=== PATIENT | female | born 1945 | race Caucasian/White ===

== ENCOUNTER → 2023-11-21 10:10 | Outpatient (REF) | payer MEDICARE, OTHER, SELFPAY ==
[2023-11-21 13:05] LABS: % Basophils 0.7 % (0-2); % Eosinophils 2.4 % (0-6); % Immature Granulocytes 0.9 % (0-0.5); % Lymphocytes 22.9 % (20.5-51.1); % Monocytes 11.2 % (1.7-9.3); % Neutrophils 61.9 % (42.2-75.2); Absolute Eosinophils 0.1 10^3/uL (0-0.7); Absolute Immature Granulocytes 0.1 10^3/uL (0-0.05); Absolute Lymphocytes 1.3 10^3/uL (1.2-3.4); Absolute Monocytes 0.7 10^3/uL (0.1-0.6); Absolute Neutrophils 3.6 10^3/uL (1.4-6.5); Hematocrit 38.8 % (37.0-47.0); Hemoglobin 12.6 g/dL (12.0-16.0); Mean Corp Hgb Conc. 32.5 g/dL (33.0-37.0); Mean Corpuscular Hgb 30.3 pg (27.0-31.0); Mean Corpuscular Volume 93.3 fL (81.0-99.0); Mean Platelet Volume 12.2 fL (7.4-10.4); Nucleated Red Blood Cells % 0 %; Platelet Count 182 10^3/uL (130-400); Red Blood Cell Count 4.16 10^6/uL (4.20-5.40); Red Cell Dist. Width 13.6 % (11.5-14.5); White Blood Cell Count 5.8 10^3/uL (4.8-10.8)
[2023-11-21 14:06] LABS: ALT (SGPT) 23 U/L (0-35); AST (SGOT) 36 U/L (14-36); Albumin 4.2 g/dl (3.5-5.0); Alkaline Phosphatase 86 U/L (38-126); Blood Urea Nitrogen 12 mg/dl (7-17); Calcium 9.6 mg/dl (8.4-10.2); Carbon Dioxide 25 mmol/L (22-30); Chloride 103 mmol/L (98-107); Glucose 84 mg/dl (70-99); HDL Cholesterol 57 mg/dl; LDL Cholesterol, Calculated 49 mg/dl; Potassium 4.5 mmol/L (3.5-5.1); Sodium 134 mmol/L (135-145); Total Bilirubin 0.9 mg/dl (0.2-1.3); Total Cholesterol 134 mg/dl (50-199); Total Protein 6.8 g/dl (6.3-8.2); Triglyceride 141 mg/dl (10-149); Very Low Density Lipoprotein 28 mg/dl (0-30); eGFR > 60.00
== END ==
LOC: HWLAB 10:10
PROVIDERS: ATTENDING PHYSICIAN Family Medicine
DX: E78.2 Mixed hyperlipidemia (principal); R79.89 Other specified abnormal findings of blood chemistry; Z79.899 Other long term (current) drug therapy
CPT/HCPCS: 36415; 80053; 80061; 85025

== ENCOUNTER → 2024-01-23 13:29 | Outpatient (REF) | payer MEDICARE, OTHER, SELFPAY ==
[2024-01-23 16:03] LABS: Hematocrit 37.1 % (37.0-47.0); Hemoglobin 12.8 g/dL (12.0-16.0); Mean Corp Hgb Conc. 34.5 g/dL (33.0-37.0); Mean Corpuscular Hgb 31.1 pg (27.0-31.0); Platelet Count 232 10^3/uL (130-400); Red Blood Cell Count 4.12 10^6/uL (4.20-5.40); Red Cell Dist. Width 13.4 % (11.5-14.5); White Blood Cell Count 6.9 10^3/uL (4.8-10.8)
[2024-01-23 16:15] LABS: ALT (SGPT) 21 U/L (0-35); AST (SGOT) 32 U/L (14-36); Albumin 4.3 g/dl (3.5-5.0); Alkaline Phosphatase 95 U/L (38-126); Blood Urea Nitrogen 16 mg/dl (7-17); Calcium 9.6 mg/dl (8.4-10.2); Carbon Dioxide 25 mmol/L (22-30); Chloride 102 mmol/L (98-107); Glucose 95 mg/dl (70-99); Iron 91 ug/dl (37-170); Potassium 5.3 mmol/L (3.5-5.1); Sodium 135 mmol/L (135-145); Total Bilirubin 0.7 mg/dl (0.2-1.3); Total Protein 6.7 g/dl (6.3-8.2); eGFR > 60.00
[2024-01-23 16:50] LABS: Ferritin 11.4 ng/ml (11.1-264.0)
[2024-01-23 18:46] LABS: Hepatitis B Surface Antigen Negative (Negative)
[2024-01-23 19:04] LABS: Hepatitis B Surface Antibody Negative
== END ==
LOC: HWLAB 13:29
PROVIDERS: ATTENDING PHYSICIAN Internal Medicine Gastroenterology; FAMILY PHYSICIAN Family Medicine
DX: K50.00 Crohn's disease of small intestine without complications (principal)
CPT/HCPCS: 36415; 80053; 82728; 83540; 85027; 86706; 87340

== ENCOUNTER → 2024-02-06 09:07 | Outpatient (REF) | payer MEDICARE, OTHER, SELFPAY ==
[2024-02-06 13:35] LABS: C-Reactive Protein < 5.00 mg/L (0.0-10.00)
[2024-02-06 13:42] LABS: Total Iron Binding Capacity 420 ug/dl (265-497)
[2024-02-06 13:43] LABS: Erythrocyte Sed Rate 17 mm/hour (0-20)
[2024-02-06 14:24] LABS: Vitamin B12 562 pg/ml (239-931)
[2024-02-06 19:10] LABS: Hepatitis B Core Ab, Total Negative (Negative)
[2024-02-08 16:15] LABS: Quantiferon Mitogen minus NIL 9.99 IU/mL; Quantiferon NIL 0.01 IU/mL; Quantiferon TB Gold Plus Negative (Negative)
== END ==
LOC: HWLAB 09:07
PROVIDERS: ATTENDING PHYSICIAN Internal Medicine Gastroenterology; FAMILY PHYSICIAN Family Medicine; REFERRING PHYSICIAN Internal Medicine Gastroenterology
DX: K50.00 Crohn's disease of small intestine without complications (principal)
CPT/HCPCS: 36415; 82607; 82652; 83550; 83993; 85652; 86140; 86480; 86704

== ENCOUNTER → 2024-05-01 11:06 | Outpatient (REF) | payer MEDICARE, OTHER, SELFPAY ==
[2024-05-01 16:12] LABS: % Basophils 0.8 % (0-2); % Eosinophils 1.4 % (0-6); % Immature Granulocytes 0.9 % (0-0.5); % Lymphocytes 19.7 % (20.5-51.1); % Monocytes 10.3 % (1.7-9.3); % Neutrophils 66.9 % (42.2-75.2); Absolute Basophils 0.1 10^3/uL (0-0.2); Absolute Eosinophils 0.1 10^3/uL (0-0.7); Absolute Immature Granulocytes 0.1 10^3/uL (0-0.05); Absolute Lymphocytes 1.3 10^3/uL (1.2-3.4); Absolute Monocytes 0.7 10^3/uL (0.1-0.6); Absolute Neutrophils 4.4 10^3/uL (1.4-6.5); Hematocrit 39.1 % (37.0-47.0); Hemoglobin 13.1 g/dL (12.0-16.0); Mean Corp Hgb Conc. 33.5 g/dL (33.0-37.0); Mean Corpuscular Hgb 31.3 pg (27.0-31.0); Mean Corpuscular Volume 93.3 fL (81.0-99.0); Mean Platelet Volume 12.3 fL (7.4-10.4); Nucleated Red Blood Cells % 0 %; Platelet Count 199 10^3/uL (130-400); Red Blood Cell Count 4.19 10^6/uL (4.20-5.40); Red Cell Dist. Width 13.4 % (11.5-14.5); White Blood Cell Count 6.5 10^3/uL (4.8-10.8)
[2024-05-01 16:23] LABS: ALT (SGPT) 24 U/L (0-35); AST (SGOT) 34 U/L (14-36); Albumin 4.1 g/dl (3.5-5.0); Alkaline Phosphatase 82 U/L (38-126); Blood Urea Nitrogen 16 mg/dl (7-17); Calcium 9.7 mg/dl (8.4-10.2); Carbon Dioxide 25 mmol/L (22-30); Chloride 104 mmol/L (98-107); Glucose 83 mg/dl (70-99); HDL Cholesterol 56 mg/dl; LDL Cholesterol, Calculated 63 mg/dl; Potassium 4.7 mmol/L (3.5-5.1); Sodium 138 mmol/L (135-145); Total Cholesterol 145 mg/dl (50-199); Total Protein 6.6 g/dl (6.3-8.2); Triglyceride 131 mg/dl (10-149); Very Low Density Lipoprotein 26 mg/dl (0-30); eGFR > 60.00
== END ==
LOC: HWLAB 11:06
PROVIDERS: ATTENDING PHYSICIAN Internal Medicine Gastroenterology; FAMILY PHYSICIAN Family Medicine
DX: K50.00 Crohn's disease of small intestine without complications (principal); E78.2 Mixed hyperlipidemia; K21.00 Gastro-esophageal reflux disease with esophagitis, without bleeding; R79.89 Other specified abnormal findings of blood chemistry
CPT/HCPCS: 36415; 80053; 80061; 85025

== ENCOUNTER → 2024-05-12 07:37 | Outpatient (REF) | payer MEDICARE, OTHER, SELFPAY | LOC: HWLAB 07:37 | PROVIDERS: ATTENDING PHYSICIAN Internal Medicine Gastroenterology; FAMILY PHYSICIAN Family Medicine | DX: K50.00 Crohn's disease of small intestine without complications (principal) | CPT/HCPCS: 36415 ==

== ENCOUNTER → 2024-06-03 12:49 | Outpatient (REF) | payer MEDICARE, OTHER, SELFPAY | LOC: HWRAD 12:49 | PROVIDERS: ATTENDING PHYSICIAN Specialist; FAMILY PHYSICIAN Family Medicine | DX: N31.2 Flaccid neuropathic bladder, not elsewhere classified (principal) | CPT/HCPCS: 76775 ==

== ENCOUNTER 2024-06-16 08:20 | Outpatient (RCR) | payer MEDICARE, OTHER, SELFPAY | END 2024-06-16 23:59 | disposition home or self-care (01) | LOC: RPT 08:20 | PROVIDERS: ATTENDING PHYSICIAN Family Medicine | DX: M67.921 Unspecified disorder of synovium and tendon, right upper arm (principal); Z73.6 Limitation of activities due to disability | CPT/HCPCS: 97110; 97162 ==

== ENCOUNTER 2024-07-08 13:16 | Outpatient (RCR) | payer MEDICARE, OTHER, SELFPAY | END 2024-07-08 23:59 | disposition home or self-care (01) | LOC: RPT 13:16 | PROVIDERS: ATTENDING PHYSICIAN Family Medicine | DX: M67.921 Unspecified disorder of synovium and tendon, right upper arm (principal); Z73.6 Limitation of activities due to disability | CPT/HCPCS: 97010; 97110 ==

== ENCOUNTER → 2024-11-12 13:53 | Outpatient (REF) | payer MEDICARE, OTHER, SELFPAY | LOC: HWRCS 13:53 | PROVIDERS: ATTENDING PHYSICIAN Internal Medicine; FAMILY PHYSICIAN Family Medicine | DX: I34.0 Nonrheumatic mitral (valve) insufficiency (principal); I10 Essential (primary) hypertension; I25.10 Atherosclerotic heart disease of native coronary artery without angina pectoris; I36.1 Nonrheumatic tricuspid (valve) insufficiency | CPT/HCPCS: 93306 ==

== ENCOUNTER → 2024-11-20 10:56 | Outpatient (REF) | payer MEDICARE, OTHER, SELFPAY ==
[2024-11-20 16:27] LABS: % Basophils 0.9 % (0-2); % Eosinophils 1.8 % (0-6); % Immature Granulocytes 0.5 % (0-0.5); % Lymphocytes 22.8 % (20.5-51.1); % Monocytes 12.2 % (1.7-9.3); % Neutrophils 61.8 % (42.2-75.2); Absolute Basophils 0.1 10^3/uL (0-0.2); Absolute Eosinophils 0.1 10^3/uL (0-0.7); Absolute Lymphocytes 1.5 10^3/uL (1.2-3.4); Absolute Monocytes 0.8 10^3/uL (0.1-0.6); Hematocrit 36.2 % (37.0-47.0); Hemoglobin 11.9 g/dL (12.0-16.0); Mean Corp Hgb Conc. 32.9 g/dL (33.0-37.0); Mean Corpuscular Hgb 30.2 pg (27.0-31.0); Mean Corpuscular Volume 91.9 fL (81.0-99.0); Nucleated Red Blood Cells % 0 %; Platelet Count 177 10^3/uL (130-400); Red Blood Cell Count 3.94 10^6/uL (4.20-5.40); Red Cell Dist. Width 13.3 % (11.5-14.5); White Blood Cell Count 6.5 10^3/uL (4.8-10.8)
[2024-11-20 16:39] LABS: ALT (SGPT) 19 U/L (0-35); AST (SGOT) 27 U/L (14-36); Albumin 3.6 g/dl (3.5-5.0); Alkaline Phosphatase 67 U/L (38-126); Blood Urea Nitrogen 11 mg/dl (7-17); Calcium 9.2 mg/dl (8.4-10.2); Carbon Dioxide 25 mmol/L (22-30); Chloride 106 mmol/L (98-107); Glucose 86 mg/dl (70-99); HDL Cholesterol 50 mg/dl; LDL Cholesterol, Calculated 45 mg/dl; Potassium 4.9 mmol/L (3.5-5.1); Sodium 137 mmol/L (135-145); Total Cholesterol 115 mg/dl (50-199); Total Protein 6.1 g/dl (6.3-8.2); Triglyceride 100 mg/dl (10-149); Very Low Density Lipoprotein 20 mg/dl (0-30); eGFR > 60.00
== END ==
LOC: HWLAB 10:56
PROVIDERS: ATTENDING PHYSICIAN Family Medicine; REFERRING PHYSICIAN Internal Medicine
DX: E78.2 Mixed hyperlipidemia (principal); K21.00 Gastro-esophageal reflux disease with esophagitis, without bleeding; I25.10 Atherosclerotic heart disease of native coronary artery without angina pectoris
CPT/HCPCS: 36415; 80053; 80061; 85025

== ENCOUNTER → 2025-01-22 12:54 | Outpatient (REF) | payer MEDICARE, OTHER, SELFPAY ==
[2025-01-22 16:30] LABS: % Basophils 0.7 % (0-2); % Eosinophils 1.7 % (0-6); % Immature Granulocytes 0.8 % (0-0.5); % Lymphocytes 21.3 % (20.5-51.1); % Monocytes 11.2 % (1.7-9.3); % Neutrophils 64.3 % (42.2-75.2); Absolute Basophils 0.1 10^3/uL (0-0.2); Absolute Eosinophils 0.1 10^3/uL (0-0.7); Absolute Immature Granulocytes 0.1 10^3/uL (0-0.05); Absolute Lymphocytes 1.5 10^3/uL (1.2-3.4); Absolute Monocytes 0.8 10^3/uL (0.1-0.6); Absolute Neutrophils 4.6 10^3/uL (1.4-6.5); Mean Corp Hgb Conc. 33.3 g/dL (33.0-37.0); Mean Corpuscular Hgb 30.3 pg (27.0-31.0); Mean Corpuscular Volume 90.9 fL (81.0-99.0); Mean Platelet Volume 11.9 fL (7.4-10.4); Nucleated Red Blood Cells % 0 %; Platelet Count 230 10^3/uL (130-400); Red Blood Cell Count 4.29 10^6/uL (4.20-5.40); Red Cell Dist. Width 13.5 % (11.5-14.5); White Blood Cell Count 7.2 10^3/uL (4.8-10.8)
[2025-01-22 16:35] LABS: Iron 76 ug/dl (37-170)
[2025-01-22 17:12] LABS: Ferritin 21.2 ng/ml (11.1-264.0)
[2025-01-22 17:26] LABS: Vitamin B12 797 pg/ml (239-931)
== END ==
LOC: HWLAB 12:54
PROVIDERS: ATTENDING PHYSICIAN Family Medicine
DX: K50.00 Crohn's disease of small intestine without complications (principal); D64.9 Anemia, unspecified
CPT/HCPCS: 36415; 82607; 82728; 83540; 85025

== ENCOUNTER → 2025-02-09 11:48 | Outpatient (REF) | payer MEDICARE, OTHER, SELFPAY | LOC: CLAB 11:48 | PROVIDERS: ATTENDING PHYSICIAN Specialist | DX: N39.0 Urinary tract infection, site not specified (principal) | CPT/HCPCS: 87077; 87086; 87186 ==

== ENCOUNTER → 2025-02-25 09:11 | Outpatient (REF) | payer MEDICARE, OTHER, SELFPAY ==
[2025-02-25 11:55] LABS: Hematocrit 39.0 % (37.0-47.0); Hemoglobin 12.8 g/dL (12.0-16.0); Mean Corp Hgb Conc. 32.8 g/dL (33.0-37.0); Mean Corpuscular Volume 91.3 fL (81.0-99.0); Platelet Count 193 10^3/uL (130-400); Red Cell Dist. Width 13.8 % (11.5-14.5)
[2025-02-25 12:02] LABS: ALT (SGPT) 22 U/L (0-35); AST (SGOT) 31 U/L (14-36); Albumin 4.3 g/dl (3.5-5.0); Alkaline Phosphatase 67 U/L (38-126); Blood Urea Nitrogen 13 mg/dl (7-17); Calcium 9.4 mg/dl (8.4-10.2); Carbon Dioxide 26 mmol/L (22-30); Chloride 105 mmol/L (98-107); Glucose 92 mg/dl (70-99); Iron 94 ug/dl (37-170); Potassium 4.7 mmol/L (3.5-5.1); Sodium 136 mmol/L (135-145); Total Protein 6.7 g/dl (6.3-8.2); eGFR > 60.00
[2025-02-25 12:37] LABS: Ferritin 12.6 ng/ml (11.1-264.0)
[2025-02-25 12:45] LABS: Hepatitis B Surface Antigen Negative (Negative)
== END ==
LOC: HWLAB 09:11
PROVIDERS: ATTENDING PHYSICIAN Internal Medicine Gastroenterology; FAMILY PHYSICIAN Family Medicine
DX: K50.00 Crohn's disease of small intestine without complications (principal)
CPT/HCPCS: 36415; 80053; 82728; 83540; 83993; 85027; 86480; 86706; 87340

== ENCOUNTER → 2025-03-05 12:07 | Outpatient (REF) | payer MEDICARE, OTHER, SELFPAY ==
[2025-03-05 17:13] LABS: Urine Character Slightly Cloudy (Clear)
[2025-03-05 18:35] LABS: Urine Red Blood Cell 0-2 /HPF (0-2); Urine Squamous Cell 0-2 /LPF (Few); Urine White Cell 21-25 /HPF (0-5)
== END ==
LOC: HWLAB 12:07
PROVIDERS: ATTENDING PHYSICIAN Specialist; FAMILY PHYSICIAN Family Medicine; REFERRING PHYSICIAN Specialist
DX: N30.20 Other chronic cystitis without hematuria (principal)
CPT/HCPCS: 81003; 81015; 87077; 87086; 87186

== ENCOUNTER 2025-03-30 22:09 | Emergency (ER) | payer MEDICARE, OTHER, SELFPAY ==
[2025-03-30 22:25] VITALS: BP 148/92
[2025-03-31 01:57] VITALS: BP 114/85
[2025-03-31 02:00] VITALS: BP 118/90
[2025-03-31 02:14] VITALS: BP 114/98
[2025-03-31 02:16] LABS: Urine Character Clear (Clear)
[2025-03-31 02:20] LABS: Hematocrit 37.5 % (37.0-47.0); Hemoglobin 12.8 g/dL (12.0-16.0); Mean Corp Hgb Conc. 34.1 g/dL (33.0-37.0); Mean Corpuscular Volume 88.2 fL (81.0-99.0); Nucleated Red Blood Cells % 0 %; Platelet Count 191 10^3/uL (130-400); Red Cell Dist. Width 14.0 % (11.5-14.5)
[2025-03-31 02:30] LABS: Urine Squamous Cell >30 /LPF (Few)
[2025-03-31 02:31] LABS: Urine Urothelial Cell >30 /LPF (FEW); Urine White Cell >100 /HPF (0-5)
[2025-03-31 02:44] LABS: ALT (SGPT) 61 U/L (0-35); AST (SGOT) 62 U/L (14-36); Albumin 4.3 g/dl (3.5-5.0); Alkaline Phosphatase 73 U/L (38-126); Blood Urea Nitrogen 18 mg/dl (7-17); Calcium 9.3 mg/dl (8.4-10.2); Carbon Dioxide 22 mmol/L (22-30); Chloride 100 mmol/L (98-107); Estimated Creatinine Clearance 50 ml/min; Glucose 111 mg/dl (70-99); Potassium 4.7 mmol/L (3.5-5.1); Sodium 128 mmol/L (135-145); Total Protein 6.7 g/dl (6.3-8.2); eGFR > 60.00
--- NOTE | 2025-03-31 03:05 | ED.GENMED ---
History of Present Illness
General
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
Source: patient
Exam Limitations: none
Time Seen by Provider: 03/31/25 02:15
Nursing documentation reviewed up to this point in time: agreed with
History of Present Illness
History of Present Illness:
Note:
CHIEF COMPLAINT(S)
Inability to urinate, burning sensation, and discolored urine.
HISTORY OF PRESENT ILLNESS
The patient is a 79-year-old female with a history of CAD, HTN, HLP, GERD, neurogenic/atonic bladder, leading to the use of self-catheterization twice daily for approximately two and a half years. The patient reports that despite regular
catheterization, she normally produces a significant volume of urine. However, recently she noticed a reduction in urine output recently, with episodes of burning sensation occurring about three weeks ago. She was treated with an antibiotic, which
she believes was called ciprofloxacin, but it caused dizziness without resolving her symptoms. She later took two packets of an unknown medication that provided temporary relief. Her symptoms resolved. Then, on a recent Saturday a few days ago, the
patient experienced burning more intensely than previous episodes. She consulted with her urologist, Dr. Kim, and was advised to submit another urine sample. The next day, she was unable to urinate, producing only a thick, brownish liquid upon
catheterization, unlike any urine she had seen before. Despite attempting increased fluid intake and additional catheterizations throughout the day, she remained unable to void normally. Another urologist, Dr. Chen, advised her to visit the
emergency room due to concerns about the discolored urine and minimal output.
The patient denies fever, flank pain, or significant abdominal discomfort, except for some lower abdominal pain near the pelvis. She expressed concerns about possible blockage or stones but noted that she did not experience typical pain associated
with kidney stones. She has not had any fevers or chills. She has no chest pain or shortness of breath. She has had no nausea or vomiting.
PHYSICAL EXAM
General: Alert, no acute distress. Well appearing.
Skin: Warm, dry.
Head: Normocephalic, atraumatic.
Neck: Supple, trachea midline.
Eyes, Ears, Nose, Mouth and Throat: Oral mucosa moist.
Cardiovascular: Normal peripheral perfusion, no edema.
Respiratory: Respirations are non-labored.
Gastrointestinal: Abdomen nondistended soft, minimally tender in lower quadrants.
Neurological: Alert and oriented to person, place, time, and situation, no focal neurological deficit observed.
Psychiatric: Cooperative, appropriate mood & affect.
PLAN
1. Initiate a catheterization for urine sample and analysis to confirm infection and identify the specific bacteria.
(Thick mucousy urine and unable to catheterize resolved--nursing staff was able to successfully catheterize draining yellow urine)
(Patient also had an episode in the ER where she urinated normally without self catheterization)
2. Perform a CT scan to evaluate for any obstructions or anomalies in the urinary tract.
3. Review patients renal function tests as they become available.
4. Investigate previous antibiotic regimen to determine efficacy and potential alternative treatment.
5. Consider potential use of keflex after further evaluation.
DIFFERENTIAL DIAGNOSIS
The Differential Diagnosis includes, in no particular order and is not limited to:
1. Urinary Tract Infection
2. Pyelonephritis
3. Obstructive Uropathy
4. Hemorrhagic Cystitis
5. Urolithiasis
6. Bladder Neoplasm
7. Renal Failure
8. Interstitial Cystitis
9. Neurogenic Bladder Dysfunction
10. Dehydration leading to concentrated urine production.
Disposition:
SUMMARY OF ENCOUNTER
The patient, a 79-year-old female with a history of neurogenic bladder managed by self-catheterization, presented to the emergency department with urinary retention and dark brown urine. She reported difficulty in draining urine, which eventually
passed as thick, brown, mucusy fluid. On examination, she was not in acute distress, with a soft and minimally tender abdomen. A CT scan was performed and was negative for obstructive nephropathy but showed mild cystitis and a small amount of fluid
within the gallbladder fossa but no signs of cholecystitis, liver disease, or biliary or pancreatic obstruction. Her urinalysis indicated a possible infection. It was decided to initiate antibiotics and advise close follow-up with urology. Blood
work showed hyponatremia, elevated total bilirubin, and mild elevation in liver function tests, necessitating follow-up with her primary care provider. Suspect hyponatremia may possibly be a result of potential excessive fluid intake, as patient
admits to drinking excessive water today in an attempt to try to urinate and get her bladder to drain. As patient is feeling well currently and has no other symptoms other than pelvic discomfort, I believe the hyponatremia and LFT elevation can be
managed and worked up as an outpatient. Discussed strict return precautions. Patient reports that she has a close follow up with her later today to schedule close follow up, she understands that she must get a CMP repeated in one week.
DISPOSITION
Discharge.
ASSESSMENT
The patient presents with symptoms suggestive of a urinary tract infection possibly complicated by neurogenic bladder dysfunction, with additional findings of elevated bilirubin and mild liver function abnormalities. Further evaluation and follow-up
with primary care and urology are necessary to manage the infection and monitor liver function.
PLAN
1. Initiate antibiotic therapy for suspected urinary tract infection.
2. Advise close follow-up with urology concerning the neurogenic bladder and possible infection.
3. Recommend follow-up with primary care provider for repeat blood work and to monitor elevated bilirubin and liver function tests.
4. Educate the patient on monitoring symptoms and when to seek further medical attention if symptoms worsen.
INDEPENDENT REVIEW OF LABS AND INTERPRETATION OF TESTS
My independent review of urinalysis indicates signs of infection.
My independent review of liver function tests shows elevated total bilirubin and mild elevation in liver enzymes.
My independent interpretation of the CT scan reveals no obstructive nephropathy, mild cystitis, no signs of acute cholecystitis, and a small amount of fluid within the gallbladder fossa.
MEDICATION RECONCILIATION
1. Start antibiotics for urinary tract infection
MEDICAL DECISION MAKING
-Complexity of Data Reviewed: Chronic conditions affecting care [neurogenic bladder] Urinary Tract Infection, Pyelonephritis, Obstructive Uropathy, Hemorrhagic Cystitis, Urolithiasis, Bladder Neoplasm, Renal Failure, Interstitial Cystitis,
Neurogenic Bladder Dysfunction, Dehydration leading to concentrated urine production.
-Data:
Category 1
Non-emergency department records reviewed: External record reviewed: I reviewed the patients diagnosis of neurogenic bladder managed through self-catheterization.
Category 2
My independent interpretation of the CT scan reveals findings as described above.
-Risk:
Consideration of Admission/Observation: Escalation of care including admission/observation was considered given the complexity and risk of the patients presenting complaint, exam findings, and/or their underlying comorbidities. However, ultimately I
feel the patient is safe for outpatient management with close follow up. Reasoning: Work-up reassuring, does not reveal any acute life/organ-threatening processes, patients symptoms well controlled upon reevaluation, reexamination is reassuring,
vitals are stable, patient agreeable with discharge, reliable for follow-up.
DIAGNOSIS
- Urinary tract infection, unspecified (N39.0)
- Neurogenic bladder (N31.9)
- Abnormal liver function tests (R94.5)
- Hyponatremia (E87.6)
- Elevated bilirubin (R17)
Past History
Past History
ED Past Medical History: CAD, HTN, Hypercholesterolemia and Psychiatric (Anxiety and)
ED Past Surgical History: Cardiac (PTCA with stent times 08/16/1996) and Gynecological (oopharectomy, rectocele repair)
Social History
Tobacco: Non-smoker
Alcohol: None
Drug: None
Personal:
Living: alone
Employment: Retired
Family History
Family History: Negative Early CAD or Sudden
Review of Systems
Review of Systems
All Other Systems: ROS reviewed and negative except as documented in HPI and ROS
Phy Exam
Physical Exam
Physical Exam:
see hpi
Course
Orders/Labs/Results
Orders:
Orders
03/30/25 22:35
IV Insert/Care/Rem.- Treatment PRN
Straight cath- Treatment ONCE
Complete Blood Count/With Diff Urgent
Comprehensive Metabolic Panel Urgent
Urinalysis Reflex To Culture Urgent
Date Specimen was Collected: 03/30/25
Time Specimen was Collected: 22:35
03/31/25 01:59
Urine Microscopic Reflex Cult Urgent
Urine Culture Urgent
MARCELINO Source: U
Specimen Description:
Date Specimen was Collected: 03/30/25
Time Specimen was Collected: 22:35
03/31/25 02:45
CT Abd/pelvis W Iv Cont Urgent
Comment:
Reason For Exam: generalized abdominal pain, urinary retention
Abnormal Lab Results
03/31/25
01:59
MPV 12.7 H fL
(7.4-10.4)
Abs Immat Gran (auto) 0.1 H 10^3/uL
(0-0.05)
Absolute Neuts (auto) 6.9 H 10^3/uL
(1.4-6.5)
Absolute Monos (auto) 0.8 H 10^3/uL
(0.1-0.6)
Lymphocytes % 19.5 L %
(20.5-51.1)
Sodium 128 L mmol/L
(135-145)
BUN 18 H mg/dl
(7-17)
Glucose 111 H mg/dl
(70-99)
Total Bilirubin 1.8 H mg/dl
(0.2-1.3)
AST 62 H U/L
(14-36)
ALT 61 H U/L
(0-35)
Urine Ketones 1+ A
(Negative)
Ur Occult Blood Reflex 1+ A
(Negative)
Leukocyte Esterase Rfl 2+ A
(Negative)
Urine RBC 3-6 A /HPF
(0-2)
Urine WBC (Reflex) >100 A /HPF
(0-5)
Urine Bacteria (Reflex) Moderate A
(Negative)
Urine Albumin (Reflex) 1+ A
(Neg - Trace)
03/31/25 01:59
03/31/25 01:59
Vital Signs
Initial and Last Documented VS:
Initial Vital Signs
Temp Pulse Resp BP Pulse Ox
97.4 F 103 20 148/92 98
03/30/25 22:25 03/30/25 22:25 03/30/25 22:25 03/30/25 22:25 03/30/25 22:25
Last Documented Vital Signs
Temp Pulse Resp BP Pulse Ox
97.4 F 103 20 117/84 95
03/30/25 22:25 03/30/25 22:25 03/30/25 22:25 03/31/25 03:28 03/31/25 03:45
*Pulse Oximetry
SaO2: 99
Oxygen Mode of Delivery: Room air
Patient hypoxic: no
*Critical Care Note
Total Time (30-74mins, 75-104mins- exclusive of procedures): Not Applicable
ED Attending Note
-
Portions of this chart may have been created with voice recognition software.� Occasional wrong word or��sound alike� substitutions may have occurred due to the inherent limitations of voice recognition software.
Discharge Plan
Departure
Patient Disposition: Home (Routine Discharge)
Date of Disposition: 03/31/25
Time of Disposition: 04:37
Patient with high blood pressure during this ER visit?: Yes
Condition: Good
Discharge Problem:
Urinary tract infection, Urinary retention
Instructions: Urinary Tract Infection, Adult (DC), BLOOD PRESSURE
Prescriptions:
New
cefuroxime axetil 500 mg tablet
500 mg PO BID 7 Days Qty: 14 0RF
No Action
lisinopril 10 MG tablet
20 mg PO BID
nadolol 120 MG tablet
120 mg PO HS
omeprazole magnesium [Prilosec OTC] 20 MG tablet,delayed release (DR/EC)
20 mg PO Q48H
Patient Comments:
pt states takes when she needs it---usually every other day
Calcium
1 tab PO DAILY
Patient Comments:
takes calcium with mg and vit d
Centrum Silver Tablet
1 tab PO DAILY
Vytorin 10-40 mg Tablet
1 tab PO DAILY
aspirin 325 MG tablet,delayed release (DR/EC)
325 mg PO DAILY
nitrofurantoin monohyd/m-cryst 100 MG capsule
100 mg PO BID Qty: 14 0RF
Referrals:
Magalie Cochran MD [Non-Admitting Privileges, Urology] - Call in 1-3 days for appt
Jammie Hanson MD [Family Provider, Family Practice]
Alvina Galvin MD [Non-Admitting Privileges, Gynecology] - Call in 1-3 days for appt
Sanjay Carpio MD [Active, Urology]
Activity Restrictions/Additional Instructions:
I have you a few different names of urogynecologists in the area that you can follow up with.
Cefuroxime has been sent to your pharmacy. Please do not take Prilosec while you are taking this medication. Please take one tablet twice daily for 7 days.
Please call your primary for follow-up. PLEASE RETURN TO THE ER SHOULD YOU DEVELOP SHORTNESS OF BREATH, CHEST PAIN, FEVERS OR CHILLS, ABDOMINAL PAIN, INTRACTABLE NAUSEA OR VOMITING, ANY OTHER SIGNS OR SYMPTOMS RECENTLY.
Interventions
Interventions:
*Risk Screen - Suicide Last Done: 03/30/25 22:25
*General Assessment Last Done: 03/30/25 22:25
*Neglect/Abuse Screening Last Done: 03/30/25 22:25
*ED- Fall Risk Assessment Last Done: 03/30/25 22:25
*ED COVID-19 Vaccine History Last Done: 03/31/25 04:54
*Nursing Disposition Last Done: 03/31/25 04:54
ED-Female Genitourinary Assessment Last Done: 03/31/25 01:48
Discharge Date and Time
Discharge Date/Time: 03/31/25 05:14
Print Language: CHADIAN
[2025-03-31 03:28] VITALS: BP 117/84
== END 2025-03-31 05:14 | disposition home or self-care (01) ==
LOC: EMR 22:09
PROVIDERS: Emergency Medicine; EMERGENCY PHYSICIAN Student in an Organized Health Care Education/Training Program; FAMILY PHYSICIAN Family Medicine
DX: N39.0 Urinary tract infection, site not specified (principal); R33.9 Retention of urine, unspecified; R94.5 Abnormal results of liver function studies; N31.9 Neuromuscular dysfunction of bladder, unspecified; E87.1 Hypo-osmolality and hyponatremia; R17 Unspecified jaundice; I25.10 Atherosclerotic heart disease of native coronary artery without angina pectoris; E78.00 Pure hypercholesterolemia, unspecified; Z95.5 Presence of coronary angioplasty implant and graft
CPT/HCPCS: 99284; 74177; 80053; 81003; 81015; 85025; 87086; Q9967

== ENCOUNTER 2025-04-03 22:58 | Inpatient (IN) | payer MEDICARE, OTHER, SELFPAY ==
[2025-04-03 19:12] VITALS: BMI 23.3
[2025-04-03 19:21] VITALS: BP 121/99
[2025-04-03 19:47] LABS: Hematocrit 39.3 % (37.0-47.0); Hemoglobin 13.2 g/dL (12.0-16.0); Mean Corp Hgb Conc. 33.6 g/dL (33.0-37.0); Mean Corpuscular Volume 88.9 fL (81.0-99.0); Nucleated Red Blood Cells % 0 %; Platelet Count 174 10^3/uL (130-400); Red Cell Dist. Width 14.6 % (11.5-14.5)
[2025-04-03 20:01] VITALS: BP 115/84
[2025-04-03 20:11] LABS: Blood Urea Nitrogen 16 mg/dl (7-17); Calcium 9.5 mg/dl (8.4-10.2); Carbon Dioxide 22 mmol/L (22-30); Chloride 102 mmol/L (98-107); Estimated Creatinine Clearance 58 ml/min; Glucose 104 mg/dl (70-99); Sodium 129 mmol/L (135-145); eGFR > 60.00
[2025-04-03 20:19] LABS: Troponin I < 0.012 ng/ml
[2025-04-03 21:00] VITALS: BP 126/101
[2025-04-03 21:33] VITALS: BP 129/84
[2025-04-03] MEDS: CARDIZEM 14 MG IV (21:33)
[2025-04-03 22:00] VITALS: BP 112/93
[2025-04-03] MEDS: CARDIZEM 125 IV (22:20)
--- NOTE | 2025-04-03 22:27 | ED.GENMED ---
History of Present Illness
General
Chief Complaint: Heart Rate Problem
Time Seen by Provider: 04/03/25 20:27
History of Present Illness
History of Present Illness:
79-year-old female with history of CAD status post stenting history of neurogenic bladder requiring self-catheterization presenting for a fluttering sensation in her chest. Patient notes she was in the hospital 3 days ago for UTI, started on
antibiotics. The following day when she got home she felt a fluttering sensation in her chest. She continued to have the symptoms today so she went to urgent care and was told that she was in A-fib. Denies any prior history of A-fib. Denies
chest pain. Denies any present fluttering sensation. She is not on any blood thinners. Denies difficulty breathing. Denies fever. Denies additional acute medical complaints
Past History
Past History
ED Past Medical History: CAD, HTN, Hypercholesterolemia and Psychiatric (Anxiety and)
ED Past Surgical History: Cardiac (PTCA with stent times 08/16/1996) and Gynecological (oopharectomy, rectocele repair)
Social History
Tobacco: Non-smoker
Alcohol: None
Drug: None
Personal:
Living: alone
Employment: Retired
Family History
Family History: Negative Early CAD or Sudden
Phy Exam
Physical Exam
Physical Exam:
General: Well-appearing, no clinical signs of dehydration, nontoxic and in no acute distress
HEENT: protecting airway
Neck: appears supple
CV: Tachycardia, irregular irregular rhythm, no evidence of cyanosis
Resp: No accessory muscle use, no increased work of breathing, lungs clear to auscultation bilaterally
Abd: No distention
Extremities: No deformities, no swelling
Neuro: alert, no focal neurologic deficit
: deferred
Rectal: deferred
Psych: Normal affect
Skin: Intact
Scores
[id number] Score for Afib Stroke Risk
Age in Years (65=0, 65-74=1, >/=75=2): > or = 75
Sex (Female=+1): Female
Congestive Heart Failure History (Yes=+1): No
Hypertension History (Yes=+1): Yes
Stroke/TIA/Thromboembolism History (Yes=+2): No
Vascular Disease History (Yes=+1): Yes
Diabetes Mellitus (Yes=+1): No
Score: 5
Anticoagulation Recommendations: Recommend anticoagulation (as validated in nonvalvular fib)
Course
Orders/Labs/Results
Orders:
Orders
04/03/25 19:28
Electrocardiogram (*1) Urgent
Reason for Study: Chest Pain
Cardiac Monitoring- Treatment ONCE
EKG- Treatment ONCE
IV Insert/Care/Rem.- Treatment PRN
O2 Therapy [RESP] Urgent
Titrate/Wean O2 to maintain O2 sat greater than (%): 90
Special Instructions: Maintain sats >/=90%
Pulse Ox/spot Check [RESP] Urgent
Quantity: 1
Special Instructions: ON ROOM AIR
04/03/25 19:31
Basic Metabolic Panel Urgent
Complete Blood Count/With Diff Urgent
Troponin I Urgent
04/03/25 21:15
Diltiazem HCl [Cardizem] 14 mg IV NOW STA
04/03/25 22:07
Diltiazem 125 mg/125 ml Nss [Cardizem] 125 mg in 125 ml IV NOW
Currently infusing. Continue current dose and titrate:: Yes
Titrate to keep:: Heart rate 80-100 bpm
Titrate by mg/hr:: 5 mg/hr
Frequency of titrations (minutes):: 15
Maximum dose in mg/hr:: 15
04/03/25 22:26
Apixaban [Eliquis] 5 mg PO ONCE ONE
Cefuroxime Axetil [Ceftin] 500 mg PO NOW STA
Abnormal Lab Results
04/03/25
19:31
RDW 14.6 H %
(11.5-14.5)
MPV 13.1 H fL
(7.4-10.4)
Abs Immat Gran (auto) 0.1 H 10^3/uL
(0-0.05)
Absolute Monos (auto) 0.8 H 10^3/uL
(0.1-0.6)
Immature Gran % 0.6 H %
(0-0.5)
Monocytes % 10.3 H %
(1.7-9.3)
Sodium 129 L mmol/L
(135-145)
Glucose 104 H mg/dl
(70-99)
04/03/25 19:31
04/03/25 19:31
Vital Signs
Initial and Last Documented VS:
Initial Vital Signs
Temp Pulse Resp Pulse Ox
97.6 F 138 18 95
04/03/25 19:13 04/03/25 19:13 04/03/25 19:13 04/03/25 19:13
Last Documented Vital Signs
Temp Pulse Resp BP Pulse Ox
97.6 F 121 22 115/84 95
04/03/25 19:13 04/03/25 20:15 04/03/25 19:30 04/03/25 20:01 04/03/25 20:15
MDM/Problems Addressed
MDM/Problems Addressed:
79-year-old female with history of CAD status post stenting and neurogenic bladder presenting for fluttering sensation in her chest. Vitals significant for tachycardia.
On exam, patient is resting comfortably, no acute distress, asymptomatic. However on monitor, patient is in A-fib with RVR, denies any present fluttering. Suspected source of patient's preceding symptoms, however unclear when symptoms truly
started given that she is asymptomatic and remains in atrial fibrillation. Do not feel the patient is a candidate for cardioversion, no hemodynamic instability. Plan for laboratory analysis and diltiazem.
22:30 - Patient responded to diltiazem, however heart rate continues to fluctuate. Will start on diltiazem drip. Will start on Eliquis given [id number] score. Plan for admission for new onset A-fib
*Pulse Oximetry
SaO2: 95
Oxygen Mode of Delivery: Room air
Patient hypoxic: no
*EKG
Interpreted by ED Provider?: Yes
EKG Intrepretation Date: 04/03/25
EKG Intrepretation Time: 22:30
Interpretation: abnormal
Comparison EKG: changes noted
Heart Rate: 132
Rate: tachycardiac
Rhythm: a-fib
[place]: normal axis
QRS Pattern: normal QRS
Ischemia: non-specific ST changes
*Critical Care Note
Total Time (30-74mins, 75-104mins- exclusive of procedures): Not Applicable
ED Attending Note
-
Portions of this chart may have been created with voice recognition software.� Occasional wrong word or��sound alike� substitutions may have occurred due to the inherent limitations of voice recognition software.
Discharge Plan
Departure
Prescriptions:
No Action
lisinopril 10 MG tablet
20 mg PO BID
nadolol 120 MG tablet
120 mg PO HS
omeprazole magnesium [Prilosec OTC] 20 MG tablet,delayed release (DR/EC)
20 mg PO Q48H
Patient Comments:
pt states takes when she needs it---usually every other day
Calcium
1 tab PO DAILY
Patient Comments:
takes calcium with mg and vit d
Centrum Silver Tablet
1 tab PO DAILY
Vytorin 10-40 mg Tablet
1 tab PO DAILY
aspirin 325 MG tablet,delayed release (DR/EC)
325 mg PO DAILY
nitrofurantoin monohyd/m-cryst 100 MG capsule
100 mg PO BID Qty: 14 0RF
cefuroxime axetil 500 mg tablet
500 mg PO BID 7 Days Qty: 14 0RF
Referrals:
Jammie Hanson MD [Family Provider, [facility]]
Interventions
Interventions:
*Risk Screen - Suicide Last Done: 04/03/25 19:21
*General Assessment Last Done: 04/03/25 19:21
*Neglect/Abuse Screening Last Done: 04/03/25 19:21
*ED- Fall Risk Assessment Last Done: 04/03/25 19:21
*ED COVID-19 Vaccine History Last Done: 04/03/25 19:21
ED- Cardiac Assessment Last Done: 04/03/25 19:21
ED- Pulmonary Assessment Last Done: 04/03/25 19:21
Discharge Date and Time
Print Language: YI
[2025-04-03] MEDS: CEFTIN 500 MG PO (22:34)
[2025-04-03] MEDS: ELIQUIS 5 MG PO (22:34)
[2025-04-03 23:00] VITALS: BP 122/72
--- NOTE | 2025-04-03 23:04 | HPS.HSE ---
Family Physician
-
Family Physician: Jammie Hanson
Chief Complaint
-
chest fluttering
History of Present Illness
79-year-old female past medical history of CAD status post stents, hypertension, hypercholesteremia, anxiety, neurogenic bladder requiring self-catheterization, Crohn's disease presenting with fluttering sensation in her chest starting few days ago.
Denies chest pain or shortness of breath. Denies fever. Denies swelling in the legs.
She came to the hospital 3 days ago for decreased urination and was diagnosed with UTI and started on antibiotic. The following day she got home and felt a fluttering sensation in her chest. She went to urgent care was told that she was in atrial
fibrillation. She denies any prior history of atrial fibrillation.
Medical History
Past Medical History
Past Medical History: Reports Other (CAD status post stents, hypertension, hypercholesteremia, anxiety, neurogenic bladder requiring self-catheterization, Crohn's disease )
Past Surgical History: Reports None
Social History
Tobacco: Non-smoker
Alcohol: None
Drug: None
Family History
Family History: Not pertinent
Allergies / Home Medications
Allergies reflects when Allergies were last updated in [facility].
Home Medications with original date entered in [facility]
Allergy/Medication List:
Allergies
Allergy/AdvReac Type Severity Reaction Status Date / Time
clarithromycin (From Biaxin) Allergy Severe headache Verified 04/03/25 22:47
amoxicillin AdvReac Mild diarrhea Verified 04/03/25 22:47
and colitis
Home Medications
Calcium 1 tab PO DAILY 05/31/12
Centrum Silver Tablet 1 tab PO DAILY 05/31/12
lisinopril 10 mg tablet 20 mg PO BID 05/31/12
nadolol 120 mg tablet 120 mg PO HS 05/31/12
cefuroxime axetil 500 mg tablet 500 mg PO BID 7 days #14 tabs 03/31/25
amlodipine 5 mg tablet 5 mg PO DAILY 04/03/25
aspirin 81 mg tablet 81 mg PO DAILY 04/03/25
ezetimibe 10 mg tablet 10 mg PO DAILY 04/03/25
famotidine 20 mg tablet 20 mg PO DAILY 04/03/25
mesalamine 250 mg capsule,extended release 1,000 mg PO DAILY 04/03/25
methenamine mandelate 1 gram tablet 1 g PO BID 04/03/25
rosuvastatin 20 mg tablet 20 mg PO DAILY 04/03/25
Review of Systems
-
History Source: Patient
A 12 point ROS was completed and negative except as noted: Yes
Constitutional: Reports No Symptoms
EENT: Reports No Symptoms
Respiratory: Reports No Symptoms
Cardiac: Reports See HPI
Abdomen/GI: Reports No Symptoms
: Reports No Symptoms
Musculoskeletal: Reports No Symptoms
Skin: Reports No Symptoms
Neurological: Reports No Symptoms
Endocrine: Reports No Symptoms
Hematologic/Lymphatic: Reports No Symptoms
Psych: Reports No Symptoms
Physical Exam
Vital Signs
Vital Signs
Temp Pulse Resp BP Pulse Ox
97.6 F 78 17 112/93 95
04/03/25 19:13 04/03/25 22:19 04/03/25 22:19 04/03/25 22:00 04/03/25 22:30
Physical Exam
General: Well Developed, Well Nourished and No Apparent Distress
HEENT: NormoCephalic, Moist mucous membranes and Atraumatic
Respiratory: Clear
Cardiac: S1/S2 and Irregular Rhythm; No Murmur or Rub
GI: Soft, Non Tender, Non Distended and Normal Bowel Sounds; No Organomegaly
Rectal: Deferred by Provider
Musculoskeletal: No Clubbing, No Cyanosis and No Edema
Skin: No Rash
Neuro: Nonfocal/grossly intact
Laboratory Results
-
04/03/25 19:31
04/03/25 19:31
Laboratory Results
Total Bilirubin Cancelled 04/03/25 19:31
AST Cancelled 04/03/25 19:31
ALT Cancelled 04/03/25 19:31
Alkaline Phosphatase Cancelled 04/03/25 19:31
Troponin I < 0.012 ng/ml 04/03/25 19:31
Data Reviewed
-
Lab Data: Labs Reviewed by me
Old Records: Reviewed
Impression/Plan
-
IMPRESSION:
PLAN:
# New onset atrial fibrillation with RVR
- Cardizem drip
- Eliquis started
- Echo from October shows stage II diastolic dysfunction, mild to moderate mitral regurgitation
- Check TSH
- Cardiology consulted
# Urinary tract infection
- Diagnosed 3 days ago in the ER, today is day 3 of 7 of cefuroxime
- Continue cefuroxime
Neurogenic bladder
- Requires self-catheterization
- Continue protocol
CAD status post stents
- Continue aspirin
- Continue nadolol
Essential hypertension
- Continue lisinopril
- Continue amlodipine
Crohn's disease
- Continue mesalamine
Hypercholesteremia
- Continue Zetia, statin
Anxiety
DNR/DNI
DVT prophylaxis�Eliquis
Cardiac diet
[2025-04-04] VITALS (23 sets, daily range): BP systolic 98–130; BP diastolic 54–97; BMI 23.3; BMI 22.5
--- NOTE | 2025-04-04 04:02 | PTCARENOTE ---
Received pt from ED @ 00:49. AAOx3, HR 100-110s-- other VSS. A-Fib on monitor. Cardizem gtt running through left AC @ 5mg/hr. Pt questioned code status-- does want lifesaving measures taken. Notified Keiko Hardy NP. Code status changed.
Discussed plan of care. Pt verbalizes understanding. [place] reach.
[2025-04-04 06:23] LABS: Hematocrit 36.2 % (37.0-47.0); Hemoglobin 12.3 g/dL (12.0-16.0); Mean Corp Hgb Conc. 34.0 g/dL (33.0-37.0); Mean Corpuscular Volume 90.3 fL (81.0-99.0); Nucleated Red Blood Cells % 0 %; Platelet Count 157 10^3/uL (130-400); Red Cell Dist. Width 14.5 % (11.5-14.5)
[2025-04-04 06:39] LABS: ALT (SGPT) 88 U/L (0-35); AST (SGOT) 58 U/L (14-36); Albumin 3.8 g/dl (3.5-5.0); Alkaline Phosphatase 81 U/L (38-126); Blood Urea Nitrogen 12 mg/dl (7-17); Calcium 9.4 mg/dl (8.4-10.2); Carbon Dioxide 21 mmol/L (22-30); Chloride 107 mmol/L (98-107); Estimated Creatinine Clearance 58 ml/min; Glucose 71 mg/dl (70-99); Potassium 4.2 mmol/L (3.5-5.1); Sodium 135 mmol/L (135-145); Total Protein 6.1 g/dl (6.3-8.2); eGFR > 60.00
--- NOTE | 2025-04-04 08:27 | W.PN.HOSP.TC ---
Today's Communication/Plan
-
see A/P
Assessment / Plan
Assessment / Plan
HPI: 79-year-old female past medical history of CAD status post stents, hypertension, hypercholesteremia, anxiety, neurogenic bladder requiring self-catheterization, Crohn's disease; p/w fluttering sensation in her chest that started a few days ago.
Denies chest pain or shortness of breath. Denies fever. Denies swelling in the legs.
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 The following day she got home and felt a fluttering sensation in her chest. She went to urgent care was told that she was in
atrial fibrillation. She denies any prior history of atrial fibrillation.
A/P:
# New onset atrial fibrillation with RVR on admission
Cont Cardizem drip
Eliquis started
Echo from October shows stage II diastolic dysfunction, mild to moderate mitral regurgitation
Check update echo
TSH 1.53
Cardiology consulted
# Urinary tract infection
Diagnosed 3 days CENTRAL OFFICE TECHNICIAN in the ER,
cont CENTRAL OFFICE TECHNICIAN cefuroxime, would treat for 14 days total in setting of complicated UTI with neurogenic bladder
# Mild transaminitis, likely reactive
monitor LFT
# Neurogenic bladder
Requires self-catheterization
Continue protocol
# CAD status post stents
Continue aspirin
Continue nadolol
# Essential hypertension
Continue lisinopril
Continue amlodipine
# Crohn's disease
Continue mesalamine
# Hypercholesteremia
Continue Zetia, statin
# Anxiety
DNR/DNI
DVT prophylaxis�Eliquis
Cardiac diet
DW RN
Anticipated Discharge: 24 - 48 hours
Subjective/Interval History
-
Date of Service: April 04, 2025
Objective Data
-
Labs:
Laboratory Results
04/04/25
04:52
WBC 7.8
Hgb 12.3
Hct 36.2 L
Plt Count 157
Sodium 135
Potassium 4.2
Chloride 107
Carbon Dioxide 21 L
BUN 12
Creatinine 0.5 L
Glucose 71
Calcium 9.4
Total Bilirubin 1.0
AST 58 H
ALT 88 H
Alkaline Phosphatase 81
Vital Signs:
Vital Signs
Temp Pulse Resp BP Pulse Ox
36.6 C 85 16 109/83 96
04/04/25 04:40 04/04/25 05:30 04/04/25 04:40 04/04/25 04:37 04/04/25 04:40
I&O
04/03/25 04/04/25 04/05/25
06:59 06:59 06:59
Output Total 1200 / 1200
Balance -1200 / -1200
Review of Systems
-
History Source: Patient
Cardiac: Reports Palpitations
Physical Exam
-
General: Well Developed, Well Nourished, No Apparent Distress, Comfortable and Conversant; Negative Respiratory Distress
HEENT: Normocephalic, Atraumatic, Nose Appears Normal and Ears Appear Normal; Negative Oxygen
Respiratory: Clear to Auscultation and Non Labored Respirations; Negative Accessory Resp Muscle Use
Cardiac: Regular Rhythm and S1/S2
GI: Soft, Nontender, Nondistended and Normal Bowel Sounds
Skin: Warm and Dry
Neuro: Awake, Alert, Oriented and AO x 3
Psych: Calm and Intact Judgement/Insight
Data Reviewed
-
Labs: Labs Reviewed by me
[2025-04-04] MEDS: LOW STRENGTH ASPIRIN 81 MG PO (09:02)
[2025-04-04] MEDS: ZESTRIL 20 MG PO (09:03)
[2025-04-04] MEDS: ZETIA 10 MG PO (09:04)
[2025-04-04] MEDS: ELIQUIS 5 MG PO (09:04)
[2025-04-04] MEDS: PEPCID 20 MG PO (09:07)
--- NOTE | 2025-04-04 09:21 | CON.CAR ---
Addendum entered and electronically signed by Benedicto Valdivia MD 04/04/25 13:27:
I saw and evaluated the patient with the resident. I was present for the titus portions of the history and exam and personally performed the MDM, including reviewing labs, assessing data, and directing management plan. I agree with the residents note
with my comments/adjustments below:
79-year-old female with past medical history of CAD status post remote PCI in 2011, mild to moderate MR, hypertension, hyperlipidemia, Crohn's and neurogenic bladder who was undergoing therapy for UTI presented for evaluation of a funny sensation in
her upper abdominal cavity/chest. She described as a flutter when she was walking around. She has never had this sensation before.
On exam she has an irregularly irregular rate and rhythm with a normal S1-S2 no murmur rubs or gallops were appreciated lungs are clear to auscultation bilaterally no evidence of jugular venous distention extremities are warm well-perfused and
clubbing cyanosis or edema.
EKG tracing shows atrial fibrillation with rapid ventricular response.
Labs show mild transaminitis.
Impression and plan:
Atrial fibrillation unspecified type: Unknown duration.
Rate, controlled on diltiazem, will arrange for UZIEL/DCCV.
C2Vasc:5--eliquis start
HTN: hold amlodipine, given dilt gtt
CAD s/p PCI in 2011, stop asa
npo p mn
Original Note:
Consultation
Consultation Request
Date/Time Consultation Requested: 04/04/2025, 00:40
Date/Time Consultation Performed: 04/04/2025, 09:00
Requesting Provider: Dr. Best
Performing Provider: Dr. Valdivia, Dr. Matthew
Reason for Consultation: New onset A-fib
Medical History
-
Chief Complaint: Palpitations
History of Present Illness:
79-year-old female, Ms. Marshall presented to the ER reporting fluttering sensation, that started 3 days ago. She has CAD s/p LAD stents�2011, moderate MR/TR, hypertension, hyperlipidemia, Crohn's, neurogenic bladder requiring
self-catheterization. Patient was seen here in the ER for UTI 3 days ago and she was sent home on antibiotics. Patient reports that the same day she started having palpitations. Patient denies chest pain, shortness of breath, lower extremity
edema, no history of viral illness, no thyroid abnormalities. Patient was seen by Dr. Tobias in August, -amlodipine decreased to 5 mg due to edema of lower extremities, and Crestor increased to 40 mg. Patient does not use any NSAIDs on a
chronic basis.
In the ER she was hemodynamically stable, mild hyponatremia sodium�129, TSH�1.53, troponins negative, EKG�A-fib with RVR, QTc�491, heart rate�132. She was started on diltiazem drip and Eliquis.
Past Medical History
Past Medical History: CAD, HTN, Hypercholesterolemia and Other (Chron's disease)
Social History
Tobacco: Non-Smoker
Alcohol: None
Drug: None
Living: Alone
Employment: Retired
Family History
Family History: Reviewed & Not Pertinent
Allergies / Home Medications
Allergy/AdvReac Type Severity Reaction Status Date / Time
clarithromycin (From Biaxin) Allergy Severe headache Verified 04/03/25 22:47
amoxicillin AdvReac Mild diarrhea Verified 04/03/25 22:47
and colitis
�Medication �Instructions �Recorded �Confirmed �Type
Calcium 1 tab PO DAILY 05/31/12 04/03/25 History
Centrum Silver Tablet 1 tab PO DAILY 05/31/12 04/03/25 History
lisinopril 10 mg tablet 20 mg PO BID 05/31/12 04/03/25 History
nadolol 120 mg tablet 120 mg PO HS 05/31/12 04/03/25 History
cefuroxime axetil 500 mg tablet 500 mg PO BID 7 days #14 tabs 03/31/25 04/03/25 Rx
amlodipine 5 mg tablet 5 mg PO DAILY 04/03/25 04/03/25 History
aspirin 81 mg tablet 81 mg PO DAILY 04/03/25 04/03/25 History
ezetimibe 10 mg tablet 10 mg PO DAILY 04/03/25 04/03/25 History
famotidine 20 mg tablet 20 mg PO DAILY 04/03/25 04/03/25 History
methenamine mandelate 1 gram tablet 1 g PO BID 04/03/25 04/03/25 History
rosuvastatin 20 mg tablet 20 mg PO DAILY 04/03/25 04/03/25 History
Review of Systems
-
All other systems: Negative unless noted
Physical Exam
Vital Signs
Temp Pulse Resp BP Pulse Ox
97.8 F 93 18 130/84 94
04/04/25 08:52 04/04/25 08:49 04/04/25 08:52 04/04/25 09:03 04/04/25 08:52
Lab Results
04/04/25 04:52
04/04/25 04:52
Troponin I < 0.012 ng/ml 04/03/25 19:31
Physical Exam
General: Well Developed, Well Nourished and No Apparent Distress
HEENT: Normocephalic and Anicteric
Respiratory: Clear
Cardiac: S1/S2, Irregular Rhythm and Other (Tachycardia); Negative Peripheral Edema
GI: Soft, Non Tender, Non Distended and Normal Bowel Sounds
Skin: Warm and Dry
Neuro: Awake, Alert, Oriented and AO x 3
Impression / Plan
-
Impression
79-year-old female with CAD s/p LAD stenting 2011, hypertension, hyperlipidemia, Crohn's, presenting with palpitations. EKG with A-fib with RVR.
Plan
#New onset A-fib
Telemetry reviewed
Patient in A-fib with RVR
Rates ranging between 90s-120s
Patient already started on diltiazem drip in the ER, continue
Reynaldo Vasc score�5
Continue Eliquis
Plan for UZIEL/cardioversion
N.p.o. from midnight
Echo�11/12/2024�stage II diastolic dysfunction, elevated pulmonary arterial pressures- 35, EF�50 to 60%
Patient never had sleep study done , recommend sleep study as outpatient
Continue telemetry
#CAD s/p stent
Patient started on Eliquis, discontinue aspirin
Continue nadolol, will increase to 240 mg
Continue Crestor
Continue Zetia
#Essential hypertension
Continue lisinopril
Hold amlodipine
#Moderate MR/TR
Plan on UZIEL
Continue management of other chronic conditions per primary team.
[2025-04-04] MEDS: CEFTIN 500 MG PO (11:21)
[2025-04-04] MEDS: NSS 500 IV (13:40)
--- NOTE | 2025-04-04 13:49 | W.PN.UPDATE ---
Update Note
Progress Note Update
Called in when patient had dizziness and cramps in her left leg. She is not able to get out off of the bed, does not report any chest pain, nausea/vomiting, shortness of breath. On the monitor BPs�98/60, heart rate in 110s. Telemetry with A-fib.
Patient has not received her amlodipine dose yet, received her a.m. dose of lisinopril 20 mg.
Will give her IV fluid bolus�500 cc NS. Will hold her nighttime lisinopril, will resume her back on nadolol 120 mg.
[2025-04-04 14:25] LABS: Glucose - Point of Care 172 mg/dl (70-99)
--- NOTE | 2025-04-04 14:37 | W.PN.UPDATE ---
Addendum entered and electronically signed by Benedicto Valdivia MD 04/04/25 15:28:
I saw and evaluated the patient with the resident. I was present for the titus portions of the history and exam and personally performed the MDM, including reviewing labs, assessing patient at the bedside, and directing management plan. I agree with
the residents note with my comments/adjustments below:
Patient with slurred speech, lt facial droop and left up weakness, handgrip.
Stroke alert called, case discussed with Dr Arroyo at bedside. Updated Dr Perez via [place] Text
Updated her son Dr Izaiah Marshall multiple times as testing resuls arrived.
Original Note:
Update Note
Progress Note Update
Received a text from nurse that patient had slurred speech, left sided weakness.
On exam, she had left LE and UE weakness, pronator drift on LLE. Facial droop on the left side.Slurred speech. Vision normal. Patient reports having dizziness, lightheadedness and sense of room spinning. Hemodynamically stable. Patient was normal
around 1:30 pm, when examined for lightheadedness, no weakness, was talking fine.
BP in 123/76., irregular rhythm, tachycardic.
Stroke alert called. Neurology- Dr. Arroyo was here. Patient is taken to CT head stat. Patient is in the window for TNK / TPA.
Also updated son Izaiah Marshall.
--- NOTE | 2025-04-04 14:39 | CON.NEURO ---
Addendum entered and electronically signed by Nate Arroyo MD 04/04/25 16:11:
patient got TNK 3:19 pm, 7re examined ~3:50 PM
NIHSS of 3 (LUE, LLE, neglect) the facial droop and dysarthria are resolved, and the left sided weakness/neglect are improved
I updated [facility] stroke fellow Missy and Patient's son Izaiah Ramychristinabernadette over the phone
Original Note:
Neuro Assessment/Plan
Assessment
Head CT imgs rev'd, no bleed, ?proximal right MCA thrombus
Acute ischemic/embolic stroke right MCA territory, NIHSS 6
patient received 2 doses of eliquis for new onset Afib
I recommended off-label treatment with TNK and quoted her bleed risk of 2.5% for DOAC, and patient agreed to take it.
[email or web address]/journals/jamaneurology/fullarticle/[email or web address]
CTA head/neck showing complete occlusion right distal ICA and proximal M1
spoke with [facility] stroke fellow transfer by air straight to OR for planned thrombectomy
45' crit seeing patient during stroke alert, consenting for off label TNK and transfer for thrombectomy, independently reviewing literature, speaking with [facility] transfer center and stroke fellow
Plan
Admit to MICU for 24 hours of frequent neurochecks.�
neurochecks q1, Frequent vital signs Q15min x 2hrs, then Q30min x 6hrs, then Q1H x 16hrs until stable from the start of TNK.�
�tele, accuchecks/ISS. Repeat Head CT in 24 hours
Blood pressure goals: <180/105 and MAP 80-100� in the acute period.� If BP elevated for 2 readings, preferred agents include IV labetalol or nicardipine.� Vasopressors as necessary to maintain MAP and CPP.�
Glucose goals: Maintain euglycemia using sliding scale insulin. If glucose >180 for two consecutive readings, please use MICU insulin protocol.�
Temperature goals: maintain normothermia�
Diagnostic tests: MRI brain without contrast, ECHO with bubble.�
Consultation
Order
Date of Consultation: 04/04/25
Requesting Provider: Ana
Reason for Consult: Stroke alert
Subjective/Objective
Subjective Data
Date of Service: April 04, 2025
79 year old woman admitted new onset afib, in IVU for cardizem drip titration
LKN 2pm. stroke alert called for left sided weakness
Objective Data
Vital Signs
Temp Pulse Resp BP Pulse Ox
36.6 C 92 18 119/96 92
04/04/25 11:52 04/04/25 14:30 04/04/25 11:52 04/04/25 14:30 04/04/25 14:25
Lab Results
04/04/25 04:52
04/04/25 04:52
Sodium 135 mmol/L (135-145) 04/04/25 04:52
Potassium 4.2 mmol/L (3.5-5.1) 04/04/25 04:52
BUN 12 mg/dl (7-17) 04/04/25 04:52
Glucose 71 mg/dl (70-99) 04/04/25 04:52
Calcium 9.4 mg/dl (8.4-10.2) 04/04/25 04:52
Patient Allergies
clarithromycin (From Biaxin) Allergy (Severe, Verified 04/03/25 22:47)
headache
amoxicillin Adverse Reaction (Mild, Verified 04/03/25 22:47)
diarrhea and colitis
CVA Assessment
Onset of Stroke Symptoms
Time pt last seen normal is known: Yes
Date last time pt seen normal: 04/04/25
Time last time pt seen normal: 14:00
NIH Stroke Score
Level of Consciousness: 0 - Alert
LOC Questions: 0-Answers both correctly
LOC Commands: 0-Performs both correctly
Best Horizontal Gaze: 0-Normal
Visual Vaz: 0=Normal, no visual loss
Facial Palsy: 1=Minor paralysis
Motor - Right Arm: 0=No drift 10 seconds
Motor - Left Arm: 1=Drift < 10 seconds
Motor - Right Le-No drift 5 seconds
Motor - Left Le-Drift < 5 seconds
Limb Ataxia: 0-Absent
Sensation: 0-Normal
Best Language: 0-No aphasia
Dysarthria: 1-Mild slurring
Extinction and Inattention: 2-Total karol inattention
NIH Total Score:: 6
Tenecteplase Contraindications
Reasons for NON-Tx with Thrombolytics ABSOLUTE Exclusions: Patient taking oral anticoagulant and last dose within 48 hours
Physical Exam
-
AAOx3, mild dysarthria
L facial droop
mild left sided weakness
profound left sided neglect
Medications
-
Active Medications
Generic Name Dose Route Start Last Admin
Trade Name Freq PRN Reason Stop Dose Admin
Amlodipine Besylate 5 mg 04/04/25 08:00 04/04/25 10:44
Amlodipine 5 Mg Tablet PO 05/02/25 07:59 Not Given
On Hold: 04/04/25 09:55 DAILY MARY JANE
Apixaban 5 mg 04/04/25 08:00 04/04/25 09:04
Apixaban (Eliquis) 5 Mg Tablet PO 05/02/25 07:59 5 mg
BID MARY JANE Administration
Cefuroxime Axetil 500 mg 04/04/25 08:00 04/04/25 11:21
Cefuroxime 500 Mg Tablet PO 04/14/25 07:59 500 mg
BID MARY JANE Administration
Ezetimibe 10 mg 04/04/25 08:00 04/04/25 09:04
Ezetimibe (Zetia) 10 Mg Tablet PO 05/02/25 07:59 10 mg
DAILY MARY JANE Administration
Famotidine 20 mg 04/04/25 10:00 04/04/25 09:07
Famotidine 20 Mg Tablet PO 05/02/25 09:59 20 mg
DAILY@1000 MARY JANE Administration
Diltiazem HCl 125 mg in 125 mls @ 0 mls/hr 04/04/25 00:40
Cardizem IV
PER PROTOCOL MARY JANE
Protocol
Per Protocol
Lisinopril 20 mg 04/04/25 08:00 04/04/25 09:03
Lisinopril 20 Mg Tablet PO 05/02/25 07:59 20 mg
On Hold: 04/04/25 13:36 BID MARY JANE Administration
Resume: 04/05/25 08:00
Nadolol 120 mg 04/04/25 22:00
Nadolol 20 Mg Tablet PO 05/02/25 21:59
HS MARY JANE
Rosuvastatin Calcium 20 mg 04/04/25 08:00
Rosuvastatin (Crestor) 20 Mg Tablet PO 05/02/25 07:59
DAILY MARY JANE
Home Medications
�Medication �Instructions �Recorded
Calcium 1 tab PO DAILY Supplement 05/31/12
Centrum Silver Tablet 1 tab PO DAILY Supplement 05/31/12
lisinopril 10 mg tablet 20 mg PO BID Blood Pressure 05/31/12
nadolol 120 mg tablet 120 mg PO HS Blood Pressure 05/31/12
cefuroxime axetil 500 mg tablet 500 mg PO BID 7 days #14 tabs 03/31/25
amlodipine 5 mg tablet 5 mg PO DAILY Blood Pressure 04/03/25
aspirin 81 mg tablet 81 mg PO DAILY Blood Clot 04/03/25
Prevention/Tx
ezetimibe 10 mg tablet 10 mg PO DAILY High Cholesterol 04/03/25
famotidine 20 mg tablet 20 mg PO DAILY Gastrointestinal 04/03/25
Issue
methenamine mandelate 1 gram tablet 1 g PO BID Urinary Issue 04/03/25
rosuvastatin 20 mg tablet 20 mg PO DAILY High Cholesterol 04/03/25
--- NOTE | 2025-04-04 14:40 | PTCARENOTE ---
Pt reported dizziness @12:50 to her visiting family, BP 112/69, pt had received 20mgs lisinopril this morning which is her stated BUT pt later said she 'takes one little pink pill' in the morning and she was not clear on the doses.
[facility] notified and came to see pt, 500mls IV fluid given as ordered over 30 minutes. BP improved after IV fluid, pt sleepy.
--- NOTE | 2025-04-04 14:45 | RR ---
A Rapid Response was called on this patient, please see Rapid Response form.
Pt at her baseline at 14:00. At 14:25 pt drowsy with slight left facial droop, left arm and left leg weakness and slurred speech. Rapid response and stroke alert called, and Gab at her bedside. Accucheck 172. gave NIHSS score
of 5. Pt taken to CT scan. Patent IV device in place.
--- NOTE | 2025-04-04 15:05 | CON.INTV ---
Consultation
Consultation Request
Date/Time Consultation Requested: 04/04/2025-3:15 PM
Date/Time Consultation Performed: 04/04/2025-3:30 PM
Requesting Provider: Hospitalist
Performing Provider: Dr. Raymundo
Reason for Consultation: CVA/critical care management
Medical History
-
Chief Complaint: CVA
History of Present Illness:
79-year-old non-smoking female with a history of hypertension, hyperlipidemia, CAD/stents, anxiety, neurogenic bladder as well as Crohn's disease felt like some fluttering in her chest and was admitted with new onset atrial fibrillation, received 2
doses of Eliquis and today had CVA and received TNK-freight forwarder consulted for CVA/post TNK/critical care management 04/04/2025.. I am seeing her in the medical intensive care unit as she was just transferred. She recently received TNK. Her speech
has already improved. She continues to have some left upper and lower extremity weakness but no numbness. She is alert and oriented. I reviewed with resident who saw her with acute symptoms prior to TNK and the patient is already improved. She
denies any shortness of breath, chest congestion, chest pain, productive cough, abdominal pain, nausea.
Past Medical History
Past Medical History: None (Hypertension. Hyperlipidemia. CAD/LAD stent 2012. Anxiety. Neurogenic [id number]. Crohn's disease.)
Social History
Tobacco: Non-smoker
Alcohol: None
Drug: None
Living: Alone
Occupational Exposures: No known asbestos exposure
Environmental Exposures: No known tuberculosis exposure
Family History
Family History: Reviewed & Not Pertinent
Allergies / Home Medications
Allergies
Allergy/AdvReac Type Severity Reaction Status Date / Time
clarithromycin (From Biaxin) Allergy Severe headache Verified 04/03/25 22:47
amoxicillin AdvReac Mild diarrhea Verified 04/03/25 22:47
and colitis
Home Medications
�Medication �Instructions �Recorded �Confirmed �Last Taken �Type
Calcium 1 tab PO DAILY Supplement 05/31/12 04/03/25 05/31/12 09:00 History
Centrum Silver Tablet 1 tab PO DAILY Supplement 05/31/12 04/03/25 05/31/12 09:00 History
lisinopril 10 mg tablet 20 mg PO BID Blood Pressure 05/31/12 04/03/25 10/31/17 History
nadolol 120 mg tablet 120 mg PO HS Blood Pressure 05/31/12 04/03/25 06/01/12 History
cefuroxime axetil 500 mg tablet 500 mg PO BID 7 days #14 tabs 03/31/25 04/03/25 1 Day Ago Rx
~04/02/25
amlodipine 5 mg tablet 5 mg PO DAILY Blood Pressure 04/03/25 04/03/25 Unknown History
aspirin 81 mg tablet 81 mg PO DAILY Blood Clot 04/03/25 04/03/25 Unknown History
Prevention/Tx
ezetimibe 10 mg tablet 10 mg PO DAILY High Cholesterol 04/03/25 04/03/25 Unknown History
famotidine 20 mg tablet 20 mg PO DAILY Gastrointestinal 04/03/25 04/03/25 Unknown History
Issue
methenamine mandelate 1 gram tablet 1 g PO BID Urinary Issue 04/03/25 04/03/25 Unknown History
rosuvastatin 20 mg tablet 20 mg PO DAILY High Cholesterol 04/03/25 04/03/25 Unknown History
Review of Systems
-
Unable to Obtain full review of systems at this time due to: Other (Per HPI)
Vitals / Labs / Diagnostic Testing
Vital Signs
Temp Pulse Resp BP Pulse Ox
97.8 F 92 18 119/96 95
04/04/25 11:52 04/04/25 14:30 04/04/25 11:52 04/04/25 14:30 04/04/25 14:40
Lab Data
04/04/25 04:52
04/04/25 04:52
Diagnostic Testing:
Physical Exam
-
Exam:
Well-nourished and well-developed in no apparent distress
HEENT-atraumatic, normocephalic
Neck-supple, no JVD, no bruit
Heart irregular
Chest-clear to auscultation, no wheezes, crackles
Back-no tenderness
Abdomen-soft, nontender, nondistended, no hepatosplenomegaly
Extremities-no cyanosis, clubbing, edema and good peripheral pulses
Integument-intact, no rashes, lesions or ecchymosis
Neurologically with left-sided weakness and aphasia
Assessment
-
79-year-old never smoking female with a history of hypertension, hyperlipidemia, CAD/stents, anxiety, neurogenic bladder as well as Crohn's disease felt like some fluttering in her chest and was admitted with new onset atrial fibrillation, received
2 doses of Eliquis and today had CVA and received TNK-freight forwarder consulted for CVA/post TNK/critical care management 04/04/2025.
New onset atrial fibrillation with rapid ventricular response
Acute ischemic/embolic CVA right MCA territory
Mild transaminitis
Mild hyponatremia
Conditions present prior to admission:
Hypertension.
Hyperlipidemia.
CAD/LAD stent 2011.
Anxiety.
Neurogenic alrjjlb-jchu-dgvraioqgvkeagg.
Crohn's disease.
Plan
Admit patient to medical intensive care unit
Supplemental oxygen to maintain saturation greater than 92%
Aspiration precautions
Neurology evaluation ongoing-correspondence reviewed
Monitor blood pressure closely-goal SBP < 180, DBP < 105
Neuro checks per protocol
CT head summarized below
CT head and neck angiogram pending
MRI head/MRA head and neck in next 24 hours
Status post tenecteplase infusion
Hold antiplatelet therapy �24 hours
Check lipid panel-goal LDL less than 70
Check echocardiogram
Check A1c
Carotid circulation evaluation
Atorvostatin 80 mg daily if tolerated
Monitor blood sugar-insulin as needed-goal blood sugar 140-180
Atrial fibrillation rate control
Cardiology evaluation ongoing-correspondence reviewed
Echocardiogram pending
Anticoagulation-had received 2 doses of Eliquis prior to CVA
DVT prophylaxis-sequential for 24 hours and then Lovenox
Speech therapy/occupational therapy/physical therapy evaluation
Stroke education packet
No driving-patient needs outpatient visual field testing/clearance by ophthalmology for driving clearance
Critical care statement: A total of 55 minutes of critical care time was provided for this patient today. This includes management of unstable vital signs, evaluation of the patient at bedside, reviewing the patient's pertinent medical records
including radiographs, microbiology, laboratory evaluations, and discussion with primary team, consultants, pharmacy, nutrition, physical therapy, case management, charge nurse, critical care nursing, and respiratory therapy.
Diagnostic data:
Chest x-ray 05/31/2012-NAD
CT abdomen and pelvis 03/31/2025-mildly enlarged heart without pericardial effusion, no focal airspace disease, no definitive acute findings in the abdomen or pelvis, mildly distended bladder, no hydronephrosis or nephrolithiasis
CT head 04/04/2025-no CT evidence for acute intracranial hemorrhage or transcortical infarct, small focus of high attenuation in the proximal right MCA possibly acute thrombus, moderate bilateral frontal and parietal volume loss
Echocardiogram 11/12/2024-stage II diastolic dysfunction, moderate mitral regurgitation, PA systolic 35
Data Reviewed
-
EKG: Report reviewed by me
Radiology: Report reviewed by me
CT Scan: Report reviewed by me
Medical Tests (Nuc Med, Echo etc): Report reviewed by me
Labs: Labs reviewed by me
Old Records: Reviewed
Critical Care Time (in minutes): 55
[2025-04-04] MEDS: TNKASE 2.8 MG IV (15:19)
--- NOTE | 2025-04-04 15:32 | PTCARENOTE ---
Pt transferred via bed to ICCU after CT scan, report called to Dr.Williamson Reynaldo to further update pt's son.
[2025-04-04] MEDS: NSS (PRESERVATIVE FREE) 10 ML IV (16:05)
[2025-04-04] MEDS: PROTONIX IV 40 MG IV (16:05)
--- NOTE | 2025-04-04 16:11 | PTCARENOTE ---
pr transferred to icu with cva. left side facial droop. dysarthria left arm weakness. dr Arroyo at bedside. tnk ordered and given. pt accepted to [facility] report given to Charlotte phelps at [facility].
--- NOTE | 2025-04-04 16:26 | W.PN.UPDATE ---
Update Note
Progress Note Update
Addendum
Called to sign consent for transfer
Patient is awake alert oriented x 3, she identified all her friends names. She signed the consent and witnessed by nurse.
Discussed with Dr. Arroyo, he updated son about the progress and transfer to [facility]
End
[2025-04-04 16:27] LABS: Hepatitis C Antibody Negative (Negative)
--- NOTE | 2025-04-04 16:33 | PTCARENOTE ---
pt picked up by marlen hough. family at bedside
--- NOTE | 2025-04-05 09:08 | CM ---
Discharge to [facility] on 03/04/25 for specialized acute care.
--- NOTE | 2025-04-05 15:02 | W.DCSUMMARY ---
Addendum entered and electronically signed by Katie Perez MD 04/05/25 15:37:
Date of discharge was 04/04/2025
Original Note:
Discharge Summary
Discharge Data
Date of Admission: 04/03/25
Date of Discharge: 04/05/25
Total time spent discharging patient (in min): 40
-
Pending Results: No
Hospital Course
Principal Diagnosis:
New onset atrial fibrillation with RVR on admission
Acute ischemic/embolic stroke right MCA territory, status post TNK
Mild transaminitis, likely reactive
Chronic Diagnoses:�
Recently diagnosed urinary tract infection, 3 days ago prior to admission, continue cefuroxime
Neurogenic bladder and requires self-catheterization
CAD status post stents, continue aspirin and nadolol
Essential hypertension on lisinopril and amlodipine
Crohn's disease
Hypercholesteremia, on Zetia, statin
Anxiety
Consultations:�
Cardiology
Neurology
[employer]st[employer] Worker
Procedures:�
None
Clinical course:�
This is a 79-year-old female with past medical history as stated above, who presented with palpitation. She was admitted for new onset A-fib with RVR.
While in the hospital, she was also noted for acute neurologic change with slurred speech and left-sided weakness, and acute ischemic stroke was diagnosed.
Problem 1:
New onset atrial fibrillation with RVR on admission.
She was treated with Cardizem drip and was started with Eliquis.
Her TSH was within normal limit at 1.53.
An update echo was ordered but this was not done prior to discharge, given she was transferred to [facility] urgently for ischemic/embolic stroke (see below).
Problem 2:
Acute ischemic/embolic stroke right MCA territory, status post TNK.
The patient was noted to develop acute neurologic change with slurred speech and left-sided weakness.
Her CT head showed no evidence for acute intracranial hemorrhage or infarct.
However, her CT head angio revealed acute complete occlusion of the intracranial right ICA, proximal M1 right middle cerebral artery, and proximal right anterior cerebral artery.
She received stat TNK, her facial droop and dysarthria resolved, and her left-sided weakness/neglect improved. She was transferred urgently to [facility].
As for the rest of her medical problems, they were stable during her hospital stay.
Discharge Plan
-
Patient Disposition: Acute Care Hospital
Discharge Orders:
Discharge Patient (As Directed); Ordered 04/04/25
Ordered By: Katie Perez
Discharge Date and Time
Discharge Date/Time: 04/04/25 16:40
Print Language: CYPRIOT
== END 2025-04-04 16:40 | disposition short-term general hospital (02) | DRG 308 ==
LOC: ICU 22:58
PROVIDERS: ADMITTING PHYSICIAN Hospitalist; ATTENDING PHYSICIAN Internal Medicine; CONSULT PHYSICIAN Internal Medicine Cardiovascular Disease; CONSULT PHYSICIAN Psychiatry & Neurology Clinical Neurophysiology; EMERGENCY PHYSICIAN Student in an Organized Health Care Education/Training Program; FAMILY PHYSICIAN Family Medicine; OTHER PHYSICIAN Internal Medicine Critical Care Medicine
PROC: 3E03317 Introduction of Other Thrombolytic into Peripheral Vein, Percutaneous Approach (ICD-10-PCS; 2025-04-04)
DX: I48.91 Unspecified atrial fibrillation (principal); I63.411 Cerebral infarction due to embolism of right middle cerebral artery; E87.1 Hypo-osmolality and hyponatremia; K50.90 Crohn's disease, unspecified, without complications; N39.0 Urinary tract infection, site not specified; Z95.5 Presence of coronary angioplasty implant and graft; I25.10 Atherosclerotic heart disease of native coronary artery without angina pectoris; I10 Essential (primary) hypertension; Z79.899 Other long term (current) drug therapy; E78.00 Pure hypercholesterolemia, unspecified; F41.9 Anxiety disorder, unspecified; N31.9 Neuromuscular dysfunction of bladder, unspecified; Z88.1 Allergy status to other antibiotic agents; I34.0 Nonrheumatic mitral (valve) insufficiency; Z66 Do not resuscitate; Z79.01 Long term (current) use of anticoagulants; Z79.82 Long term (current) use of aspirin; Z86.73 Personal history of transient ischemic attack (TIA), and cerebral infarction without residual deficits; R47.1 Dysarthria and anarthria; R29.810 Facial weakness
CPT/HCPCS: 70450; 70496; 70498; 80048; 80053; 82962; 84443; 84484; 85025; 86803; 93005; 96374; 96376; 99285; J3101; Q9967

== ENCOUNTER → 2025-06-02 11:09 | Outpatient (REF) | payer MEDICARE, OTHER, SELFPAY | LOC: HWWDC 11:09 | PROVIDERS: ATTENDING PHYSICIAN Family Medicine | DX: Z12.31 Encounter for screening mammogram for malignant neoplasm of breast (principal) | CPT/HCPCS: 77063; 77067 ==

== ENCOUNTER → 2025-07-08 13:18 | Outpatient (REF) | payer MEDICARE, OTHER, SELFPAY ==
[2025-07-08 14:09] LABS: Urine Character Cloudy (Clear)
[2025-07-08 14:26] LABS: Urine Squamous Cell 0-2 /LPF (Few)
[2025-07-08 14:27] LABS: Urine White Cell >100 /HPF (0-5)
== END ==
LOC: REG 13:18
PROVIDERS: ATTENDING PHYSICIAN Specialist
DX: N39.0 Urinary tract infection, site not specified (principal)
CPT/HCPCS: 81003; 81015; 87077; 87086; 87186